=== PATIENT | female | born 1945 | race Caucasian/White ===

== ENCOUNTER 2023-08-31 15:42 | Inpatient (IN) | payer OTHER ==
[~2023-08-31 15:42] MED LIST: Heparin 10,000 UNITS/ 10 ML VIAL ONE; Iopamidol 300 61% 100 ML VIAL FS ONE; Iopamidol 370 76% 100 ML VIAL ONE; Lidocaine 1% (PF) 30 ML VIAL ONE; Midazolam HCl 2 mg/2 ml Vial ONE; Nitroglycerin 50 MG/250 ML BOT 250 ML ONE; fentaNYL 50 mcg/mL 1 mL Vial ONE
[2023-08-31] MEDS ORDERED: Ketamine In 0.9 % NaCl 50 MG/5 ML SYRINGE ONE (15:49)
[2023-08-31] MEDS ORDERED: EPINEPHrine 1 MG/10 ML Abboject SYRINGE ONE (15:49)
[2023-08-31 16:03] LABS: Hematocrit 43.5 % (36.0-47.0); Hemoglobin 14.7 g/dL (12.0-16.0); Manual Diff?? YES; Mean Corpuscular HGB CONC 33.8 g/dL (32.0-36.0); Mean Corpuscular Hemoglobin 36.7 pg (27.0-31.0); Mean Corpuscular Volume 108.5 fl (78.0-98.0); Mean Platelet Volume 10.5 fL (7.4-10.4); Platelet Count 164 10x3/uL (130-400); RBC Distribution Width 14.7 % (11.5-14.5); Red Blood Cell (RBC) Count 4.01 mill/uL (4.20-5.40); White Blood Cell (WBC) Count 13.4 10x3/uL (4.8-10.8)
[2023-08-31 16:04] LABS: Delete Auto Diff?? YES
[2023-08-31 16:16] LABS: INR-International Normal Ratio 1.3; Prothrombin Time 16.3 sec (12.0-14.7)
[2023-08-31] MEDS ORDERED: cefTRIAXone (ROCEPHIN) 1 GM VIAL ONE (16:19)
[2023-08-31] MEDS ORDERED: Azithromycin 500 MG VIAL ONE (16:19)
[2023-08-31] MEDS ORDERED: Sodium Chloride 0.9% 100 ML ONE (16:19)
[2023-08-31] MEDS ORDERED: Sodium Chloride 0.9% 250 ML 250 ML ONE (16:20)
[2023-08-31 16:25] LABS: Band 4 % (5-11); Burr Cells SLIGHT = 2-5 cells HPF (0-1); CellaVision Operator ID LAB.MJL; Lymphocytes 52 % (21-51); Macrocytosis SLIGHT = 6-15 cells HPF (0-5); Monocytes 7 % (0-10); Neutrophil 34 % (42-75); Platelet Adequacy Comment Platelets Normal; Reactive Lymphocytes 3 % (0-10); Total Cell Count 99
[2023-08-31 16:29] LABS: ALT (SGPT) 74 U/L (8-55); AST (SGOT) 84 U/L (5-34); Albumin 4.1 g/dL (3.4-4.8); Alkaline Phosphatase 133 U/L (40-110); Anion Gap 20 mmol/L (10-20); BUN (Urea Nitrogen) 15 mg/dL (9.8-20.1); Bilirubin, Total 0.4 mg/dL (0.2-1.2); Calc. Creatinine Clearance 0 mL/min (70-130); Calcium 8.5 mg/dL (7.8-10.44); Carbon Dioxide 17 mmol/L (23-31); Chloride 103 mmol/L (98-107); Estimated GFR 61; Globulin 1.8 g/dL (2.4-3.5); Glucose 321 mg/dL (83-110); Potassium 3.5 mmol/L (3.5-5.1); Protein, Total 5.9 g/dL (5.8-8.1); Sodium 136 mmol/L (136-145)
[2023-08-31 16:32] LABS: Troponin I 0.031 ng/mL (< 0.028)
[2023-08-31 16:34] LABS: PTT Greater than 250.0 sec (22.9-36.1)
[2023-08-31 17:13] LABS: Actual Bicarbonate (HCO3a) 15.7 mEq/L (22-28); Base Excess (BEa) -9.5 mEq/L (-2.0 to +3.0); CO2 Tension 32.6 mmHg (35.0-45.0); Calcium, Ionized (arterial) 1.06 mmol/L (1.12-1.30); Carboxyhemoglobin (COHb) 6.1 gm% (0.0-3.0); Hematocrit-ABG 44 % (36.0-47.0); Hemoglobin (Hb) 14.8 g/dL (12.0-16.0); O2 Tension (PaO2), arterial 473.4 mmHg (> 70.0); pH, Arterial 7.301 (7.35-7.45)
[2023-08-31 17:14] LABS: Potassium - ABG Lab 2.56 mmol/L (3.70-5.30)
[2023-08-31 17:15] LABS: Puncture Site Arterial Line
[2023-08-31] MEDS ORDERED: TICAGRELOR 90 MG TABLET ONE (17:53)
[2023-08-31] MEDS ORDERED: Midazolam HCl 2 mg/2 ml Vial ONE (18:01)
[2023-08-31] MEDS ORDERED: fentaNYL 50 mcg/mL 1 mL Vial ONE (18:36)
[2023-08-31] MEDS ORDERED: Ventilator Sedation Protocol 1 EACH FS SCH (18:53)
[2023-08-31] MEDS ORDERED: Dextrose 5% in Water 1,000 ML IV PRN (18:58)
[2023-08-31] MEDS ORDERED: Dextrose 50% Abboject 50 ML SYRINGE SLOW IVP PRN (18:58)
[2023-08-31] MEDS ORDERED: Electrolyte Replacement Protocol 1 EACH FS SCH (18:58)
[2023-08-31] MEDS ORDERED: Glucagon 1 MG/ML KIT IM PRN (18:58)
[2023-08-31] MEDS ORDERED: HumaLOG 300 UNITS/3 ML VIAL SC PRN ×2 (18:59)
[2023-08-31] MEDS ORDERED: Morphine 2 MG/ML VIAL SLOW IVP PRN (19:00)
[2023-08-31] MEDS ORDERED: Fentanyl CADD 100 ML IV SCH (19:00)
[2023-08-31] MEDS ORDERED: Propofol BOLUS 1,000 MG/100 ML VIAL IV PRN (19:00)
[2023-08-31] MEDS ORDERED: Fentanyl BOLUS 250 ML IVPB PRN (19:00)
[2023-08-31] MEDS ORDERED: Propofol 1,000 MG/100 ML VIAL IV PRN (19:00)
[2023-08-31] MEDS ORDERED: DISCONTINUE PREVIOUS NARCOTIC PAIN MEDICATIONS AND BENZODIAZEPINES FS SCH (19:00)
[2023-08-31] MEDS ORDERED: Ondansetron PF 4 MG/2 ML Vial IVP PRN (19:10)
[2023-08-31] MEDS ORDERED: Ondansetron ODT 4 MG TAB PO PRN (19:10)
[2023-08-31] MEDS ORDERED: Acetaminophen 325 MG TAB PO PRN (19:10)
[2023-08-31] MEDS ORDERED: Acetaminophen 650 MG Suppository PR PRN (19:10)
[2023-08-31] MEDS ORDERED: Ipratropium/Albuterol 3 ML NEB NEB PRN (19:13)
[2023-08-31] MEDS ORDERED: Magnesium 2 GM/50 ML(in water) 2 GM in Premix 1 BAG IVPB SCH (19:15)
[2023-08-31] MEDS ORDERED: Potassium Chloride 20 MEQ TAB PER TUBE SCH (19:15)
[2023-08-31] MEDS ORDERED: Pantoprazole 40 MG VIAL IVP SCH (19:15)
[2023-08-31] MEDS ORDERED: NOREPINEPHRINE 8 MG/250 ML-D5W 250 ML ONE (19:28)
[2023-08-31] MEDS ORDERED: NOREPINEPHRINE 8 MG/250 ML-D5W 250 ML IVPB SCH (19:30)
[2023-08-31] MEDS ORDERED: Sodium Chloride 0.9% 1,000 ML IV SCH (19:45)
[2023-08-31] MEDS ORDERED: Vancomycin (BATCH) 1.5 GM in Premix 1 BAG IVPB SCH (19:45)
[2023-08-31] MEDS: Potassium Chloride 20 MEQ in Premix 1 BAG IVPB SCH ×2 (19:47→22:22)
[2023-08-31] MEDS ORDERED: Albuterol HFA (OR) 200 PUFF INH INH PRN (19:48)
[2023-08-31] MEDS ORDERED: HYDROcodone/Acetaminophen 7.5/325 mg Tablet PO PRN (19:50)
[2023-08-31] MEDS: Lorazepam 2 MG/ML VIAL SLOW IVP PRN (20:01)
[2023-08-31] MEDS: Nicotine 14 MG PATCH TD SCH (20:12)
[2023-08-31 20:39] LABS: Lipase 52 U/L (8-78); Magnesium 1.8 mg/dL (1.6-2.6)
[2023-08-31 20:40] LABS: Lactic Acid 5.5 mmol/L (0.5-2.2)
[2023-08-31] MEDS: dilTIAZem CD 120 MG CAP PO SCH (20:43)
[2023-08-31] MEDS: Lorazepam 0.5 MG TAB PO SCH (20:44)
[2023-08-31 20:45] LABS: Troponin I 0.243 ng/mL (< 0.028)
[2023-08-31] MEDS: Phenytoin Extended Release 100 MG CAP PO SCH (20:45)
[2023-08-31] MEDS: TICAGRELOR 90 MG TABLET PO SCH (20:50)
[2023-08-31] MEDS ORDERED: Vancomycin HCl 750 MG in Sodium Chloride 0.9% 250 ML 250 ML IVPB SCH (21:15)
[2023-08-31] MEDS ORDERED: Sodium Bicarbonate 70 MEQ in Sodium Chloride 0.45% 1,000 ML IV SCH (21:30)
[2023-08-31] MEDS: Atorvastatin Calcium 40 MG TAB PO SCH (21:32)
[2023-08-31] MEDS ORDERED: Cefepime 2 GM in Sodium Chloride 0.9% 100 ML IVPB SCH (22:00)
[2023-08-31 22:04] LABS: Bacteria/HPF None Seen HPF (None Seen); Bilirubin Negative (Negative); Blood, Urine Negative (Negative); CAUTI Indications for Culture Alt mental st,lethar; Clarity Clear (Clear); Glucose, Urine (Dipstick) 30 mg/dL (Negative); Ketone, Urine Negative (Negative); Leukocyte Negative Leu/uL (Negative); Nitrite Negative (Negative); Protein, Urine (Dipstick) 10 mg/dL (Neg-Trace); RBC/HPF 0-3 HPF (0-3); Specific Gravity, Urine 1.017 (1.002-1.036); Squamous Epithelial None Seen HPF (0-3); Urobilinogen Normal mg/dL (Less than 2); WBC/HPF 0-3 HPF (0-3); pH, Urine 6.5 (5.0-9.0)
[2023-08-31 22:06] LABS: Urine Culture Reflex No No
[2023-08-31 22:58] LABS: Troponin I 0.303 ng/mL (< 0.028)
[2023-08-31 23:02] LABS: Lactic Acid 2.6 mmol/L (0.5-2.2)
[2023-08-31 23:15] LABS: Anion Gap 16 mmol/L (10-20); BUN (Urea Nitrogen) 15 mg/dL (9.8-20.1); Calcium 7.6 mg/dL (7.8-10.44); Carbon Dioxide 19 mmol/L (23-31); Chloride 105 mmol/L (98-107); Glucose 164 mg/dL (83-110); Sodium 136 mmol/L (136-145)
[2023-08-31 23:20] LABS: SARS-CoV-2 NAA Rapid Test Not Detected (NotDetected)
[2023-08-31 23:45] LABS: Calc. Creatinine Clearance 42 mL/min (70-130); Estimated GFR 81
[2023-09-01] MEDS: Ipratropium/Albuterol 3 ML NEB NEB SCH ×4 (02:30→18:16)
[2023-09-01 03:10] LABS: Amphetamine Not Detected (NotDetected); Barbiturates Screen Detected (NotDetected); Benzodiazepine Screen Not Detected (NotDetected); Cocaine Metabolite Screen Not Detected (NotDetected); Methadone Not Detected (NotDetected); Methamphetamine Not Detected (NotDetected); Opiate Screen Detected (NotDetected); Oxycodone Screen Not Detected (NotDetected); Phencyclidine (PCP) Not Detected (NotDetected); THC/Cannabinoid Screen Detected (NotDetected); Tricyclic Screen Not Detected (NotDetected)
[2023-09-01] MEDS: Lorazepam 2 MG/ML VIAL SLOW IVP PRN (03:25)
[2023-09-01 03:56] LABS: #Monocytes 0.4 thou/uL (0.11-0.59); #Neutrophils 8.2 thou/uL (1.40-6.50); %Basophils 0.2 % (0.0-1.0); %Lymphocytes 9.6 % (21.0-51.0); %Monocytes 4.5 % (0.0-10.0); %Neutrophils 84.4 % (42.0-75.0); Hematocrit 37.4 % (36.0-47.0); Hemoglobin 13.1 g/dL (12.0-16.0); Mean Corpuscular Hemoglobin 36.3 pg (27.0-31.0); Mean Platelet Volume 10.5 fL (7.4-10.4); Platelet Count 155 10x3/uL (130-400); RBC Distribution Width 14.7 % (11.5-14.5); Red Blood Cell (RBC) Count 3.61 mill/uL (4.20-5.40); White Blood Cell (WBC) Count 9.8 10x3/uL (4.8-10.8)
[2023-09-01 04:04] LABS: Mean Corpuscular Volume 103.6 fl (78.0-98.0)
[2023-09-01 04:05] LABS: Hemoglobin A1c 5.3 % (4.0-6.0)
[2023-09-01 04:14] LABS: Lactic Acid 1.8 mmol/L (0.5-2.2)
[2023-09-01 04:22] LABS: ALT (SGPT) 153 U/L (8-55); AST (SGOT) 159 U/L (5-34); Albumin 3.6 g/dL (3.4-4.8); Alkaline Phosphatase 134 U/L (40-110); Anion Gap 14 mmol/L (10-20); BUN (Urea Nitrogen) 16 mg/dL (9.8-20.1); Bilirubin, Total 0.4 mg/dL (0.2-1.2); Calc. Creatinine Clearance 43 mL/min (70-130); Calcium 7.3 mg/dL (7.8-10.44); Carbon Dioxide 21 mmol/L (23-31); Chloride 106 mmol/L (98-107); Cholesterol 220 mg/dl (< 200 Desired); Estimated GFR 84; Globulin 2.1 g/dL (2.4-3.5); Glucose 136 mg/dL (83-110); HDL Cholesterol 74 mg/dL (>60 Neg Risk); LDL Cholesterol, Calculated 134 mg/dL; Potassium 4.7 mmol/L (3.5-5.1); Protein, Total 5.7 g/dL (5.8-8.1); Sodium 136 mmol/L (136-145); Triglycerides 61 mg/dL (Less than 150)
[2023-09-01] MEDS: Levothyroxine Sodium 100 MCG TAB PO SCH (06:31)
[2023-09-01 06:38] LABS: Actual Bicarbonate (HCO3a) 21.4 mEq/L (22-28); Base Excess (BEa) -4.6 mEq/L (-2.0 to +3.0); CO2 Tension 43.1 mmHg (35.0-45.0); Calcium, Ionized (arterial) 1.04 mmol/L (1.12-1.30); Carboxyhemoglobin (COHb) 1.4 gm% (0.0-3.0); Hematocrit-ABG 40 % (36.0-47.0); Hemoglobin (Hb) 13.7 g/dL (12.0-16.0); O2 Tension (PaO2), arterial 78.8 mmHg (> 70.0); Potassium - ABG Lab 4.28 mmol/L (3.70-5.30); pH, Arterial 7.314 (7.35-7.45)
[2023-09-01 06:40] LABS: Puncture Site RRA
[2023-09-01] MEDS ORDERED: Aspirin 81 mg Enteric Coated Tablet PO SCH (09:00)
[2023-09-01] MEDS: Aspirin Chewable 81 MG TAB PO SCH (10:18)
[2023-09-01] MEDS: Lorazepam 0.5 MG TAB PO SCH ×2 (10:18→20:54)
[2023-09-01] MEDS: Amiodarone 200 MG TAB PO SCH (10:18)
[2023-09-01] MEDS: Ondansetron ODT 4 MG TAB PO SCH (10:19)
[2023-09-01] MEDS: Pantoprazole 40 MG VIAL IVP SCH (10:19)
[2023-09-01] MEDS: TICAGRELOR 90 MG TABLET PO SCH (10:26)
[2023-09-01] MEDS: Lisinopril 20 MG TAB PO SCH (11:31)
[2023-09-01] MEDS ORDERED: guaiFENesin ER 600 MG TAB PO SCH (12:15)
[2023-09-01] MEDS: dilTIAZem CD 120 MG CAP PO SCH ×2 (12:27→20:51)
[2023-09-01] MEDS: Nicotine 14 MG PATCH TD SCH (20:44)
[2023-09-01] MEDS: Clopidogrel Bisulfate 75 MG TAB PO SCH (20:50)
[2023-09-01] MEDS: Atorvastatin Calcium 40 MG TAB PO SCH (20:50)
[2023-09-01] MEDS: guaiFENesin ER 600 MG TAB PO SCH (20:53)
[2023-09-01] MEDS: Phenytoin Extended Release 100 MG CAP PO SCH (20:54)
[2023-09-01] MEDS ORDERED: Vancomycin HCl 500 MG in Sodium Chloride 0.9% 100 ML IVPB SCH (21:00)
[2023-09-02] MEDS: Ipratropium/Albuterol 3 ML NEB NEB SCH ×4 (02:29→19:32)
[2023-09-02 04:33] LABS: #Eosinphils 0.1 thou/uL (0.0-0.7); #Monocytes 0.8 thou/uL (0.11-0.59); #Neutrophils 9.3 thou/uL (1.40-6.50); %Basophils 0.2 % (0.0-1.0); %Eosinophils 1.1 % (0.0-10.0); %Lymphocytes 14.9 % (21.0-51.0); %Monocytes 6.5 % (0.0-10.0); %Neutrophils 76.8 % (42.0-75.0); Hematocrit 37.2 % (36.0-47.0); Hemoglobin 13.3 g/dL (12.0-16.0); Mean Corpuscular HGB CONC 35.8 g/dL (32.0-36.0); Mean Corpuscular Hemoglobin 36.2 pg (27.0-31.0); Mean Corpuscular Volume 101.4 fl (78.0-98.0); Platelet Count 139 10x3/uL (130-400); Red Blood Cell (RBC) Count 3.67 mill/uL (4.20-5.40); White Blood Cell (WBC) Count 12.2 10x3/uL (4.8-10.8)
[2023-09-02 05:10] LABS: ALT (SGPT) 119 U/L (8-55); AST (SGOT) 102 U/L (5-34); Albumin 3.8 g/dL (3.4-4.8); Alkaline Phosphatase 113 U/L (40-110); Anion Gap 12 mmol/L (10-20); BUN (Urea Nitrogen) 13 mg/dL (9.8-20.1); Bilirubin, Total 0.8 mg/dL (0.2-1.2); Calc. Creatinine Clearance 48 mL/min (70-130); Calcium 8.5 mg/dL (7.8-10.44); Carbon Dioxide 25 mmol/L (23-31); Chloride 101 mmol/L (98-107); Estimated GFR 91; Glucose 88 mg/dL (83-110); Potassium 3.6 mmol/L (3.5-5.1); Protein, Total 5.8 g/dL (5.8-8.1); Sodium 134 mmol/L (136-145)
[2023-09-02 05:11] LABS: Troponin I 0.309 ng/mL (< 0.028)
[2023-09-02] MEDS ORDERED: Acetaminophen 325 MG TAB PO PRN (05:18)
[2023-09-02] MEDS ORDERED: Acetaminophen 650 MG Suppository PR PRN (05:19)
[2023-09-02] MEDS: Levothyroxine Sodium 100 MCG TAB PO SCH (05:35)
[2023-09-02] MEDS: HYDROcodone/Acetaminophen 7.5/325 mg Tablet PO PRN ×2 (05:35→21:09)
[2023-09-02] MEDS ORDERED: Morphine 4 MG/ML VIAL ONE (07:38)
[2023-09-02] MEDS ORDERED: Morphine 2 MG/ML VIAL SLOW IVP SCH (08:30)
[2023-09-02] MEDS: Aspirin Chewable 81 MG TAB PO SCH (09:13)
[2023-09-02] MEDS: Ondansetron ODT 4 MG TAB PO SCH (09:13)
[2023-09-02] MEDS: guaiFENesin ER 600 MG TAB PO SCH ×2 (09:13→21:02)
[2023-09-02] MEDS: dilTIAZem CD 120 MG CAP PO SCH ×2 (09:13→21:03)
[2023-09-02] MEDS: Lorazepam 0.5 MG TAB PO SCH ×2 (09:13→21:04)
[2023-09-02] MEDS: Amiodarone 200 MG TAB PO SCH (09:13)
[2023-09-02] MEDS: Lisinopril 20 MG TAB PO SCH (09:13)
[2023-09-02 09:14] LABS: HBSAg Index 0.23 S/CO (0-0.99); Hep A IgM AB Non-Reactive S/CO (NonReactive); Hep A IgM S/CO 0.33 S/CO (0-0.79); Hep B Surf Ag Non-Reactive S/CO (NonReactive); Hepatitis B Core IgM Abs Non-Reactive S/CO (NonReactive)
[2023-09-02] MEDS: cefTRIAXone\\ROCEPHIN 1 GM in Sodium Chloride 0.9% 100 ML IVPB SCH (09:14)
[2023-09-02] MEDS: Pantoprazole 40 MG VIAL IVP SCH (09:14)
[2023-09-02 09:21] LABS: Hep C IgG Ab Reflex HepC Qnt S/CO (NonReactive); Hep C Index 11.06 S/CO (0-0.79)
[2023-09-02] MEDS ORDERED: Furosemide 40 MG/4 ML VIAL SLOW IVP SCH (09:45)
[2023-09-02] MEDS ORDERED: tiZANidine HCl 4 MG TAB PO SCH (16:45)
[2023-09-02] MEDS: Nicotine 14 MG PATCH TD SCH (21:02)
[2023-09-02] MEDS: Phenytoin Extended Release 100 MG CAP PO SCH (21:03)
[2023-09-02] MEDS: Atorvastatin Calcium 40 MG TAB PO SCH (21:04)
[2023-09-02] MEDS: Clopidogrel Bisulfate 75 MG TAB PO SCH (21:04)
[2023-09-02] MEDS: tiZANidine HCl 4 MG TAB PO SCH (21:04)
[2023-09-03] MEDS: Ipratropium/Albuterol 3 ML NEB NEB SCH ×4 (00:36→18:29)
[2023-09-03 05:03] LABS: #Basophils 0.1 thou/uL (0.0-0.2); #Eosinphils 0.5 thou/uL (0.0-0.7); #Monocytes 0.6 thou/uL (0.11-0.59); #Neutrophils 6.5 thou/uL (1.40-6.50); %Basophils 0.8 % (0.0-1.0); %Lymphocytes 16.6 % (21.0-51.0); %Monocytes 6.4 % (0.0-10.0); %Neutrophils 70.7 % (42.0-75.0); Hemoglobin 13.2 g/dL (12.0-16.0); Mean Corpuscular HGB CONC 35.7 g/dL (32.0-36.0); Mean Corpuscular Hemoglobin 36.5 pg (27.0-31.0); Mean Corpuscular Volume 102.2 fl (78.0-98.0); Mean Platelet Volume 10.9 fL (7.4-10.4); Platelet Count 135 10x3/uL (130-400); RBC Distribution Width 14.8 % (11.5-14.5); Red Blood Cell (RBC) Count 3.62 mill/uL (4.20-5.40); White Blood Cell (WBC) Count 9.2 10x3/uL (4.8-10.8)
[2023-09-03] MEDS: Levothyroxine Sodium 100 MCG TAB PO SCH (05:07)
[2023-09-03 05:44] LABS: ALT (SGPT) 88 U/L (8-55); AST (SGOT) 56 U/L (5-34); Albumin 3.8 g/dL (3.4-4.8); Alkaline Phosphatase 108 U/L (40-110); Anion Gap 10 mmol/L (10-20); BUN (Urea Nitrogen) 14 mg/dL (9.8-20.1); Bilirubin, Total 0.8 mg/dL (0.2-1.2); Calc. Creatinine Clearance 52 mL/min (70-130); Calcium 8.7 mg/dL (7.8-10.44); Carbon Dioxide 25 mmol/L (23-31); Chloride 100 mmol/L (98-107); Estimated GFR 93; Globulin 1.9 g/dL (2.4-3.5); Glucose 82 mg/dL (83-110); Potassium 3.4 mmol/L (3.5-5.1); Protein, Total 5.7 g/dL (5.8-8.1); Sodium 132 mmol/L (136-145)
[2023-09-03] MEDS ORDERED: Potassium Chloride 20 MEQ TAB PO SCH (08:00)
[2023-09-03] MEDS: Lisinopril 20 MG TAB PO SCH (08:48)
[2023-09-03] MEDS: Aspirin Chewable 81 MG TAB PO SCH (08:48)
[2023-09-03] MEDS: guaiFENesin ER 600 MG TAB PO SCH ×2 (08:48→20:44)
[2023-09-03] MEDS: Lorazepam 0.5 MG TAB PO SCH ×2 (08:48→20:44)
[2023-09-03] MEDS: tiZANidine HCl 4 MG TAB PO SCH ×3 (08:49→20:44)
[2023-09-03] MEDS: dilTIAZem CD 120 MG CAP PO SCH ×2 (08:49→20:44)
[2023-09-03] MEDS: Ondansetron ODT 4 MG TAB PO SCH (08:49)
[2023-09-03] MEDS: Amiodarone 200 MG TAB PO SCH (08:49)
[2023-09-03] MEDS: Pantoprazole 40 MG VIAL IVP SCH (08:49)
[2023-09-03] MEDS: cefTRIAXone\\ROCEPHIN 1 GM in Sodium Chloride 0.9% 100 ML IVPB SCH (08:50)
[2023-09-03] MEDS ORDERED: Polyethylene Glycol 3350 17 GM Packet PO PRN (18:05)
[2023-09-03] MEDS: Clopidogrel Bisulfate 75 MG TAB PO SCH (20:44)
[2023-09-03] MEDS: Atorvastatin Calcium 40 MG TAB PO SCH (20:44)
[2023-09-03] MEDS: Phenytoin Extended Release 100 MG CAP PO SCH (20:44)
[2023-09-03] MEDS: Nicotine 14 MG PATCH TD SCH (20:45)
[2023-09-03] MEDS: Docusate 100 MG CAP PO PRN (23:02)
[2023-09-04] MEDS: Ipratropium/Albuterol 3 ML NEB NEB SCH ×4 (01:36→18:51)
[2023-09-04] MEDS: Levothyroxine Sodium 100 MCG TAB PO SCH (05:15)
[2023-09-04 06:27] LABS: #Basophils 0.1 thou/uL (0.0-0.2); #Eosinphils 0.7 thou/uL (0.0-0.7); #Monocytes 0.6 thou/uL (0.11-0.59); #Neutrophils 6.2 thou/uL (1.40-6.50); %Basophils 0.8 % (0.0-1.0); %Eosinophils 7.7 % (0.0-10.0); %Lymphocytes 13.4 % (21.0-51.0); %Monocytes 6.9 % (0.0-10.0); %Neutrophils 70.7 % (42.0-75.0); Hematocrit 35.1 % (36.0-47.0); Hemoglobin 12.4 g/dL (12.0-16.0); Mean Corpuscular HGB CONC 35.3 g/dL (32.0-36.0); Mean Corpuscular Hemoglobin 35.9 pg (27.0-31.0); Mean Corpuscular Volume 101.7 fl (78.0-98.0); Mean Platelet Volume 10.8 fL (7.4-10.4); Platelet Count 140 10x3/uL (130-400); RBC Distribution Width 14.8 % (11.5-14.5); Red Blood Cell (RBC) Count 3.45 mill/uL (4.20-5.40); White Blood Cell (WBC) Count 8.7 10x3/uL (4.8-10.8)
[2023-09-04 07:04] LABS: ALT (SGPT) 68 U/L (8-55); AST (SGOT) 37 U/L (5-34); Albumin 3.9 g/dL (3.4-4.8); Alkaline Phosphatase 99 U/L (40-110); Anion Gap 13 mmol/L (10-20); BUN (Urea Nitrogen) 14 mg/dL (9.8-20.1); Bilirubin, Total 0.9 mg/dL (0.2-1.2); Calc. Creatinine Clearance 51 mL/min (70-130); Calcium 8.7 mg/dL (7.8-10.44); Carbon Dioxide 22 mmol/L (23-31); Chloride 105 mmol/L (98-107); Estimated GFR 92; Glucose 86 mg/dL (83-110); Potassium 3.9 mmol/L (3.5-5.1); Protein, Total 5.9 g/dL (5.8-8.1); Sodium 136 mmol/L (136-145)
[2023-09-04] MEDS: guaiFENesin ER 600 MG TAB PO SCH ×2 (08:23→20:43)
[2023-09-04] MEDS: Amiodarone 200 MG TAB PO SCH (08:24)
[2023-09-04] MEDS: dilTIAZem CD 120 MG CAP PO SCH ×2 (08:24→20:43)
[2023-09-04] MEDS: Aspirin Chewable 81 MG TAB PO SCH (08:24)
[2023-09-04] MEDS: Pantoprazole 40 MG VIAL IVP SCH (08:24)
[2023-09-04] MEDS: tiZANidine HCl 4 MG TAB PO SCH ×3 (08:24→20:44)
[2023-09-04] MEDS: Lorazepam 0.5 MG TAB PO SCH ×2 (08:25→20:44)
[2023-09-04] MEDS: cefTRIAXone\\ROCEPHIN 1 GM in Sodium Chloride 0.9% 100 ML IVPB SCH (08:25)
[2023-09-04] MEDS: Ondansetron ODT 4 MG TAB PO SCH (08:25)
[2023-09-04] MEDS: Lisinopril 20 MG TAB PO SCH (08:26)
[2023-09-04] MEDS ORDERED: FLU VACC QS2023(65UP)/MF59C/PF 60 MCG/0.5 ML SYRINGE IM ONE (09:00)
[2023-09-04] MEDS: Docusate 100 MG CAP PO PRN (11:39)
[2023-09-04 15:13] LABS: Hep C PCR-Quant HCV Not Detected IU/mL (.)
[2023-09-04 17:04] LABS: Bacteria/HPF None Seen HPF (None Seen); Bilirubin Negative (Negative); Blood, Urine 1+ (Negative); Clarity Clear (Clear); Glucose, Urine (Dipstick) Normal (Negative); Ketone, Urine Negative (Negative); Leukocyte 250 Leu/uL (Negative); Nitrite Negative (Negative); Protein, Urine (Dipstick) Negative (Neg-Trace); Specific Gravity, Urine 1.019 (1.002-1.036); Squamous Epithelial 0-3 HPF (0-3); Urobilinogen Normal mg/dL (Less than 2)
[2023-09-04] MEDS: Nicotine 14 MG PATCH TD SCH (20:43)
[2023-09-04] MEDS: Atorvastatin Calcium 40 MG TAB PO SCH (20:43)
[2023-09-04] MEDS: Phenytoin Extended Release 100 MG CAP PO SCH (20:43)
[2023-09-04] MEDS: Clopidogrel Bisulfate 75 MG TAB PO SCH (20:43)
[2023-09-05] MEDS: Ipratropium/Albuterol 3 ML NEB NEB SCH ×4 (01:19→18:39)
[2023-09-05] MEDS: Levothyroxine Sodium 100 MCG TAB PO SCH (04:52)
[2023-09-05 05:35] LABS: #Basophils 0.1 thou/uL (0.0-0.2); #Eosinphils 0.8 thou/uL (0.0-0.7); #Monocytes 0.8 thou/uL (0.11-0.59); #Neutrophils 6.6 thou/uL (1.40-6.50); %Basophils 0.7 % (0.0-1.0); %Eosinophils 8.2 % (0.0-10.0); %Lymphocytes 14.3 % (21.0-51.0); %Monocytes 8.4 % (0.0-10.0); %Neutrophils 67.7 % (42.0-75.0); Hematocrit 34.7 % (36.0-47.0); Hemoglobin 12.3 g/dL (12.0-16.0); Mean Corpuscular HGB CONC 35.4 g/dL (32.0-36.0); Mean Corpuscular Hemoglobin 36.6 pg (27.0-31.0); Mean Corpuscular Volume 103.3 fl (78.0-98.0); Mean Platelet Volume 11.1 fL (7.4-10.4); Platelet Count 144 10x3/uL (130-400); RBC Distribution Width 14.7 % (11.5-14.5); Red Blood Cell (RBC) Count 3.36 mill/uL (4.20-5.40); White Blood Cell (WBC) Count 9.7 10x3/uL (4.8-10.8)
[2023-09-05 06:11] LABS: ALT (SGPT) 54 U/L (8-55); AST (SGOT) 29 U/L (5-34); Albumin 4.2 g/dL (3.4-4.8); Alkaline Phosphatase 114 U/L (40-110); Anion Gap 10 mmol/L (10-20); BUN (Urea Nitrogen) 19 mg/dL (9.8-20.1); Bilirubin, Total 0.7 mg/dL (0.2-1.2); Calc. Creatinine Clearance 42 mL/min (70-130); Carbon Dioxide 25 mmol/L (23-31); Chloride 102 mmol/L (98-107); Estimated GFR 82; Globulin 2.1 g/dL (2.4-3.5); Glucose 88 mg/dL (83-110); Potassium 4.1 mmol/L (3.5-5.1); Protein, Total 6.3 g/dL (5.8-8.1); Sodium 133 mmol/L (136-145)
[2023-09-05] MEDS: Aspirin Chewable 81 MG TAB PO SCH (10:06)
[2023-09-05] MEDS: Lisinopril 20 MG TAB PO SCH (10:06)
[2023-09-05] MEDS: Lorazepam 0.5 MG TAB PO SCH ×2 (10:08→20:58)
[2023-09-05] MEDS: Ondansetron ODT 4 MG TAB PO SCH (10:08)
[2023-09-05] MEDS: guaiFENesin ER 600 MG TAB PO SCH ×2 (10:08→20:57)
[2023-09-05] MEDS: dilTIAZem CD 120 MG CAP PO SCH ×2 (10:09→20:57)
[2023-09-05] MEDS: cefTRIAXone\\ROCEPHIN 1 GM in Sodium Chloride 0.9% 100 ML IVPB SCH (10:09)
[2023-09-05] MEDS: Pantoprazole 40 MG VIAL IVP SCH (10:09)
[2023-09-05] MEDS: tiZANidine HCl 4 MG TAB PO SCH ×3 (10:16→20:58)
[2023-09-05] MEDS ORDERED: diphenhydrAMINE 25 MG CAP PO SCH (13:45)
[2023-09-05 14:51] VITALS: BMI 17.9
[2023-09-05] MEDS ORDERED: predniSONE 20 MG TAB PO SCH (17:30)
[2023-09-05] MEDS: Atorvastatin Calcium 40 MG TAB PO SCH (20:57)
[2023-09-05] MEDS: Nicotine 14 MG PATCH TD SCH (20:57)
[2023-09-05] MEDS: Clopidogrel Bisulfate 75 MG TAB PO SCH (20:57)
[2023-09-05] MEDS: Phenytoin Extended Release 100 MG CAP PO SCH (20:57)
[2023-09-05] MEDS: Cefdinir 300 MG CAP PO SCH (20:58)
[2023-09-05] MEDS ORDERED: Melatonin 3 MG TAB PO PRN (21:36)
[2023-09-06] MEDS: Ipratropium/Albuterol 3 ML NEB NEB SCH ×3 (02:17→13:54)
[2023-09-06] MEDS: Levothyroxine Sodium 100 MCG TAB PO SCH (05:59)
[2023-09-06] MEDS ORDERED: predniSONE 20 MG TAB PO SCH (08:00)
[2023-09-06] MEDS: Cefdinir 300 MG CAP PO SCH (08:54)
[2023-09-06] MEDS: guaiFENesin ER 600 MG TAB PO SCH (08:54)
[2023-09-06] MEDS: tiZANidine HCl 4 MG TAB PO SCH ×2 (08:54→16:04)
[2023-09-06] MEDS: Aspirin Chewable 81 MG TAB PO SCH (08:54)
[2023-09-06] MEDS: Lorazepam 0.5 MG TAB PO SCH (08:55)
[2023-09-06] MEDS: Ondansetron ODT 4 MG TAB PO SCH (08:55)
[2023-09-06] MEDS: dilTIAZem CD 120 MG CAP PO SCH (08:55)
[2023-09-06] MEDS: Lisinopril 20 MG TAB PO SCH (08:55)
[2023-09-06 15:15] VITALS: TEMP 97.5
[2023-09-06 16:26] VITALS: BP 186/87
== END 2023-09-06 15:15 | disposition home or self-care (01) | DRG 981 ==
LOC: ERS 15:42 → CCL 16:10 → CCU 18:53 → 2NO 09-02 20:16
PROVIDERS: ADMIT Internal Medicine Cardiovascular Disease; ATTEND Internal Medicine Cardiovascular Disease
PROC: 027034Z Dilation of Coronary Artery, One Artery with Drug-eluting Intraluminal Device, Percutaneous Approach (ICD-10-PCS; principal; 2023-08-31)
PROC: 0BH17EZ Insertion of Endotracheal Airway into Trachea, Via Natural or Artificial Opening (ICD-10-PCS; 2023-08-31)
PROC: 4A023N7 Measurement of Cardiac Sampling and Pressure, Left Heart, Percutaneous Approach (ICD-10-PCS; 2023-08-31)
PROC: B2151ZZ Fluoroscopy of Left Heart using Low Osmolar Contrast (ICD-10-PCS; 2023-08-31)
PROC: B2111ZZ Fluoroscopy of Multiple Coronary Arteries using Low Osmolar Contrast (ICD-10-PCS; 2023-08-31)
PROC: 4A133R1 Monitoring of Arterial Saturation, Peripheral, Percutaneous Approach (ICD-10-PCS; 2023-08-31)
PROC: 5A1935Z Respiratory Ventilation, Less than 24 Consecutive Hours (ICD-10-PCS; 2023-08-31)
PROC: 3E033XZ Introduction of Vasopressor into Peripheral Vein, Percutaneous Approach (ICD-10-PCS; 2023-08-31)
PROC: B240ZZ3 Ultrasonography of Single Coronary Artery, Intravascular (ICD-10-PCS; 2023-08-31)
DX: J96.21 Acute and chronic respiratory failure with hypoxia (principal); I21.4 Non-ST elevation (NSTEMI) myocardial infarction; R57.0 Cardiogenic shock; I50.23 Acute on chronic systolic (congestive) heart failure; E87.20 Acidosis, unspecified; R64 Cachexia; Z68.1 Body mass index [BMI] 19.9 or less, adult; I11.0 Hypertensive heart disease with heart failure; I44.7 Left bundle-branch block, unspecified; J43.9 Emphysema, unspecified; F03.90 Unspecified dementia, unspecified severity, without behavioral disturbance, psychotic disturbance, mood disturbance, and anxiety; F41.9 Anxiety disorder, unspecified; Z90.710 Acquired absence of both cervix and uterus; Z79.899 Other long term (current) drug therapy; I25.10 Atherosclerotic heart disease of native coronary artery without angina pectoris; E03.9 Hypothyroidism, unspecified; G40.909 Epilepsy, unspecified, not intractable, without status epilepticus; E87.6 Hypokalemia; R73.9 Hyperglycemia, unspecified; I73.9 Peripheral vascular disease, unspecified; E83.42 Hypomagnesemia; Z11.52 Encounter for screening for COVID-19; R53.81 Other malaise
CPT/HCPCS: 31500; 36415; 36416; 36600; 71045; 76705; 80053; 80061; 80074; 80306; 81001; 82533; 82805; 83036; 83605; 83690; 83735; 83880; 84145; 84439; 84443; 84484; 85025; 85347; 85610; 85730; 87522; 92928; 92978; 93005; 93010; 93306; 93458; 93798; 94002; 94003; 94640; 94760; 96365; C1753; C1769; C1874; C1887; C1894; C9113; C9600; J0171; J0456; J0692; J0696; J1644; J2001; J2060; J2250; J2270; J3010; J3370; J3475; J3480; J3490; J7050; J7512; J7620; Q0162; Q9967